=== PATIENT | male | born 1930 | race Caucasian/White ===

== ENCOUNTER → 2017-01-18 | Day surgery (SDC) | payer MEDICARE, BC | LOC: MSO 09:21 | DX: H25.11 Age-related nuclear cataract, right eye (principal); I10 Essential (primary) hypertension; Z95.0 Presence of cardiac pacemaker; Z87.891 Personal history of nicotine dependence | CPT/HCPCS: 00142; A9270-GY; J0171; J2250; J3010; V2632; V2797 ==